=== PATIENT | female | born 1990 | race Hispanic/Latino ===

== ENCOUNTER 2018-06-18 15:28 | Inpatient (IN) | payer OTHER, SELFPAY ==
[~2018-06-18] VITALS: Ht 162.6 cm; Wt 72.8 kg
--- OUTSIDE RECORDS SUMMARY | 2018-06-18 15:30 | XMS REPORT ---
Author Author [facility] Organization [facility] Address Unknown Phone Unavailable Care Team Providers Care Wire Coater Name Role Phone Kalani WEBSTER Unavailable Unavailable Payers Payer Name Policy Type Policy Number Effective Date Expiration Date Problems This patient has no known problems. Allergies, Adverse Reactions, Alerts Allergy Name Allergy Type Status Severity Reaction(s) Onset Date Inactive Date Treating Clinician Comments No Known Allergies DA Active U 2018-03-11 00:00:00 No Known Allergies DA Active U 2017-11-10 00:00:00 Medications This patient has no known medications. Results Test Description Test Time Test Comments Text Results Atomic Results Result Comments US OB TRANSVAG 1ST TRI SINGLE [place] [address] Patient Name: DAYTON PADILLA MR #: [id number] : 1990 Age/Sex: 26/F Req #: [id number] Adm Physician: Ordered by: BETTY WEBSTER MD Report #: [id number] Location: ER Room/Bed: Procedure: [id number] US/US OB TRANSVAG 1ST TRI SINGLE Exam Date: Exam Time: REPORT STATUS: Signed Pelvic ultrasound Transabdominal and Transvaginal History: , bleeding Comparison: None. Technique: Transabdominal ultrasound performed for global evaluation of the uterus. Transvaginal ultrasound performed for detailed evaluation of the endometrium and ovaries. Selected images provided for review. Findings: The uterus is anteverted. It measures 4.4 x 7.0 x 9.6 cm in length. It is normal in size configuration and echogenicity. A round fluid-filled structure in the fundal endometrium with surrounding endometrial thickening measures 7 x 5 x 5 mm. No evidence of yolk sac or embryo. There may be a small subchorionic hemorrhage. Myometrial echo pattern is normal. No evidence of fibroid. The cervix contains a few nabothian cysts. The right ovary measures 2.4 x 2.9 x 3.6 cm. No evidence of mass. The left ovary measures1.0 x 1.7 x 2.3 cm. No evidence of mass. There is no fluid in the cul-de-sac. IMPRESSION: 1. No conclusive evidence of intrauterine or ectopic . Cystic structure in the fundal endometrium could represent a gestational sac. Recommend serial beta hCGs and ultrasounds to confirm developing intrauterine . 2. Normal ovaries. Signed by: Dr. Zenia Gonzalez MD on 04/08/2017 11:34 AM Dictated By: ZENIA GONZALEZ MD [id number] Transcribed By: SANDRA on 04/08/17 1134 COPY TO: BETTY WEBSTER MD
[2018-06-18] MEDS ORDERED: SODIUM CHLORIDE 0.9% 1000ML 1,000 ML IV STA (17:50)
[2018-06-18] MEDS ORDERED: CEFTRIAXONE SOD 1 GM/NS 50 ML 50 ML IV STA (17:50)
[2018-06-18 17:51] LABS: BILIRUBIN,URINE NEGATIVE (NEGATIVE); CLARITY,URINE SL CLOUDY (CLEAR); COLOR,URINE YELLOW (YELLOW); KETONES,URINE NEGATIVE (NEGATIVE); LEUKOCYTE ESTERASE ,URINE TRACE (NEGATIVE); NITRITE,URINE NEGATIVE (NEGATIVE); PREGNANCY TEST, URINE NEGATIVE (NEGATIVE); PROTEIN,URINE DIPSTICK NEGATIVE (NEGATIVE); URINE UROBILINOGEN 0.2 mg/dL (0.2 - 1)
[2018-06-18] MEDS ORDERED: ONDANSETRON HCL INJ 2MG/ML 2ML 2 MG/ML VIAL IV NR (18:00)
[2018-06-18] MEDS ORDERED: MORPHINE SULFATE INJ 4 MG/ML INJ 1ML IV NR (18:00)
[2018-06-18 18:10] LABS: WBC,URINE (MAN) 0-5 /HPF (0-5)
[2018-06-18 18:11] LABS: BACTERIA,URINE MODERATE /HPF; EPITHELIAL CELLS,URINE MANY /LPF
[2018-06-18 18:45] LABS: BASOPHILS % 0.2 % (0.0-1.0); EOSINOPHILS % 0.1 % (0.0-6.0); HEMATOCRIT 41.4 % (34.2-44.1); HEMOGLOBIN 14.1 g/dL (12.0-16.0); LYMPHOCYTES # (AUTO) 1.8 (1.0-3.2); LYMPHOCYTES % 9.8 % (18.0-39.1); MEAN CORPUSCULAR HEMOGLOBIN 30.4 pg (28-32); MEAN CORPUSCULAR HGB CONC 34.1 g/dL (31-35); MEAN CORPUSCULAR VOLUME 89.2 fL (81-99); MONOCYTES # (AUTO) 1.1 (0.2-0.8); NEUTROPHILS # (AUTO) 15.6 (2.1-6.9); NEUTROPHILS % 83.4 % (38.7-80.0); PLATELET COUNT 286 x10e3/uL (140-360); RED BLOOD COUNT 4.64 x10e6/uL (3.6-5.1); RED CELL DISTRIBUTION WIDTH 12.6 % (11.7-14.4)
[2018-06-18 18:59] LABS: ALANINE AMINOTRANSFERASE 12 IU/L (0-55); ALBUMIN/GLOBULIN RATIO 1.3 (0.8-2.0); ALKALINE PHOSPHATASE 71 IU/L (40-150); ANION GAP 14.6 mmol/L (8-16); BLOOD UREA NITROGEN 9 mg/dL (7-26); BUN/CREATININE RATIO 11 (6-25); CALCIUM 9.3 mg/dL (8.4-10.2); CARBON DIOXIDE 24 mmol/L (22-29); CHLORIDE 104 mmol/L (98-107); CREATININE, SERUM 0.81 mg/dL (0.57-1.11); EST GLOMERULAR FILTRATION RATE > 60 ML/MIN (60-); GLUCOSE 86 mg/dL (74-118); POTASSIUM 3.6 mmol/L (3.5-5.1); SODIUM 139 mmol/L (136-145)
--- NOTE | 2018-06-18 19:54 | Diagnostic Imaging Report ---
EXAMINATION: CT of the abdomen and pelvis with contrast. TECHNIQUE: Spiral CT images of the abdomen and pelvis were performed from the lung bases to the lesser trochanters after the intravenous administration of 100 cc of Isovue 370 and the oral administration of water. Coronal and sagittal reformatted images were obtained. COMPARISON: None. CLINICAL HISTORY:Stomach pain, right lower quadrant pain since today DISCUSSION: ABDOMEN/PELVIS: LOWER THORAX:Unremarkable. HEPATOBILIARY: No focal hepatic lesions. No intra or extrahepatic biliary ductal dilation. GALLBLADDER: No radio-opaque stones or sludge. No wall thickening. SPLEEN: No splenomegaly. PANCREAS: No focal masses or ductal dilatation. ADRENALS: 1.1 x 1.2 cm low density well-circumscribed lesion in the right adrenal gland (series 2, image 24 and coronal image 59). Linear calcification in the right adrenal gland. Left adrenal is unremarkable. KIDNEYS/URETERS: No hydronephrosis, stones, or solid mass lesions. PELVIC ORGANS/BLADDER: Bladder and uterus are unremarkable. PERITONEUM/RETROPERITONEUM: Small amount of free fluid in the pelvic cul-de-sac LYMPH NODES: Several mildly prominent, however, subcentimeter lymph nodes along the ileocolic vessel distribution (coronal image 40). No intra-abdominal, retroperitoneal, pelvic or inguinal adenopathy. VESSELS: The celiac trunk,superior and inferior mesenteric and bilateral renal arteries are patent The portal, superior mesenteric and splenic veins are patent. GI TRACT: The appendix is moderately distended measuring 1.2 cm in diameter, with thickened enhancing hardwick and mild to moderate surrounding periappendiceal/pericecal inflammatory changes (series 2, image 62 and coronal images 31-41). No radiopaque appendicolith is identified. No foci of extraluminal air or well-defined enhancing fluid collections. Rest of the bowel shows no dilation or obstruction. No wall thickening. BONES AND SOFT TISSUE: No bony destructive lesions. No soft tissue abnormalities. IMPRESSION: 1. Findings consistent with uncomplicated acute appendicitis. No perforation or adjacent abscess formation. 2. Indeterminate 1.2 cm low-density well-circumscribed lesion in the right adrenal gland, probably representing a small adenoma. Recommend CT abdomen with adrenal mass protocol for further evaluation, on a nonemergent basis. 3. Findings discussed with Jasper Currie NP May 18, 2019 at 1945 hours Signed by: Dr. Reymundo Martinez M.D. on 06/18/2018 7:51 PM
[2018-06-18] MEDS ORDERED: MORPHINE SULFATE 2 MG/ML SYR 1ML IV PRN (20:00)
[2018-06-18] MEDS ORDERED: CEFTRIAXONE SOD 1 GM/NS 50 ML 50 ML IV ONE (20:00)
[2018-06-18] MEDS ORDERED: ONDANSETRON HCL INJ 2MG/ML 2ML 2 MG/ML VIAL IV PRN (20:00)
[2018-06-18] MEDS ORDERED: MORPHINE SULFATE INJ 4 MG/ML INJ 1ML IV PRN (20:30)
[2018-06-18] MEDS ORDERED: IOPAMIDOL 370 MG/ML 200 ML INFUS..BTL INJ ONE (22:39)
[2018-06-18] MEDS ORDERED: SODIUM CHLORIDE 0.9% 50ML 50 ML ONE (22:39)
[2018-06-18] MEDS: SODIUM CHLORIDE 0.9% 1000ML 1,000 ML IV SCH (22:45)
[2018-06-18 23:30] VITALS: BP 128/67
[2018-06-18] MEDS: METRONIDAZOLE 500MG/NS 100ML 100 ML IV SCH (23:48)
[2018-06-19] VITALS: BP 128/67
[2018-06-19 04:00] VITALS: BP 109/60
--- NOTE | 2018-06-19 04:30 | NUR ---
pt states surgical procedure has not been explained by the physician. she states she will sign surgical consent when procedure has been exp;lanescotty to her.
[2018-06-19] MEDS: METRONIDAZOLE 500MG/NS 100ML 100 ML IV SCH ×3 (05:44→18:13)
[2018-06-19] MEDS: SODIUM CHLORIDE 0.9% 1000ML 1,000 ML IV SCH (06:45)
--- NOTE | 2018-06-19 07:30 | NUR ---
Dr. Tyra Albarado at the bedside explained planned procedure to patient and mom. Both verbalized understanding.
--- NOTE | 2018-06-19 08:05 | History and Physical ---
CHIEF COMPLAINT: Right lower quadrant pain. HISTORY OF PRESENT ILLNESS: The patient is a pleasant 27-year-old otherwise healthy female admitted complaining of abdominal pain since Sunday evening. The pain began in the periumbilical area and localized to the right lower quadrant. There was no vomiting. No diarrhea. No fever though she felt chills. No previous similar episodes in the past. The patient came to the emergency room where CT scan revealed changes consistent with acute appendicitis and complicated with perforation. PAST MEDICAL HISTORY: Unremarkable. PAST SURGICAL HISTORY: about a year ago. ALLERGIES: NO KNOWN ALLERGIES. FAMILY HISTORY: Noncontributory. SOCIAL HISTORY: She drinks socially. Does not smoke. REVIEW OF SYSTEMS: Unremarkable except for what has already been stated. PHYSICAL EXAMINATION GENERAL: Reveals a 27-year-old female who is complaining at this point of headache, as well as right lower quadrant pain. VITALS: She is afebrile with stable vital signs. HEENT: Reveals no acute process. LUNGS: Clear. HEART: Reveals regular sinus rhythm. ABDOMEN: Soft with right lower quadrant tenderness and rebound in the right lower quadrant. Bowel sounds are present. PELVIC: Deferred. EXTREMITIES: Reveals no clubbing, cyanosis or edema. NEUROLOGICAL: Nonfocal. ASSESSMENT: Acute appendicitis, both clinically and by radiologic and laboratory data. PLAN: Proceed with laparoscopic appendectomy and possible open appendectomy. The patient agrees with plan. She is aware of potential complications. She is aware of the fact that an open procedure may also be required. Job#: [id number] NADIRA
[2018-06-19 08:43] VITALS: BP 110/64
--- NOTE | 2018-06-19 08:48 | NUR ---
SOCIAL WORK INITIAL ASSESSMENT Transmission System Operator to bedside to discuss plan of care with patient/family. CM/SW role and care transitions discussed. Anticipated discharge plan discussed along with duration of care. CM/SW discussed patients right to make decisions in care. CM/SW work hours given. Patient lives: IN APARTMENT WITH BOYFRIEND AND KIDS Admit/Transfer: VIA ED FROM HOME POA/Emergency contact: MOTHER IS CURT [phone] Current/Previous Home Health: NONE PCP/Follow-up Care: NONE Current/Previous DME: NONE Other Services: NONE Employment Status: HOUSEWIFE Areas of Concerns: NONE Referral Needs: NONE Education Needs: NONE IMM/GUTIERREZ given and signed (if applicable):NA Goal for discharge: RETURN HOME INDEPENDENTLY CM/SW left business card at the bedside with contact information. Name and number was also written on the patients whiteboard. Patient verbalized understanding of discussion. CM will follow-up with ongoing discharge and transition of care needs.
--- NOTE | 2018-06-19 08:49 | NUR ---
Patient off unit to OR via bed.
[2018-06-19] MEDS ORDERED: BUPIVACAINE 0.25%/EPI 30ML SDV INJ ONE (09:12)
--- NOTE | 2018-06-19 12:35 | NUR ---
Patient continues off unit in OR. Family updated
[2018-06-19] MEDS ORDERED: METRONIDAZOLE 500MG/NS 100ML 100 ML IV ONE (12:47)
[2018-06-19] MEDS ORDERED: HYDROMORPHONE 1MG/1ML INJ IV PRN (13:15)
[2018-06-19] MEDS ORDERED: HYDROMORPHONE 2MG/ML 2 MG/ML ML ONE (13:45)
[2018-06-19] MEDS: CEFTRIAXONE SOD 2 GM/NS 100 ML 100 ML IV SCH (14:00)
--- NOTE | 2018-06-19 14:00 | NUR ---
Patient continues off unit and she will be going to med/surg once bed is available. Family updated.
[2018-06-19] MEDS ORDERED: ONDANSETRON HCL INJ 2MG/ML 2ML 2 MG/ML VIAL ONE ×2 (15:28→17:08)
--- NOTE | 2018-06-19 15:45 | NUR ---
PT TO THE FLOOR FROM PACU. VITALS WNL. FAMILY AT BEDSIDE. PT DENIES NEEDS AT THIS TIME.
--- NOTE | 2018-06-19 15:46 | NUR ---
Report given to CATHERINE Arita, family gathered belongings and transferred to room 115.
--- NOTE | 2018-06-19 15:55 | Operative Report ---
DATE OF PROCEDURE: June 18, 2018 PREOPERATIVE DIAGNOSIS: Acute appendicitis. POSTOPERATIVE DIAGNOSIS: Acute appendicitis. PROCEDURE PERFORMED: Attempted laparoscopic appendectomy converted to open appendectomy. ANESTHESIA: General endotracheal. ESTIMATED BLOOD LOSS: 150 mL. DRAINS: 10-mm flat Brown-Javier drain. COMPLICATIONS: None. INDICATIONS AND FINDINGS: The patient is a 27-year-old, healthy female . Workup revealed acute appendicitis. INTRAOPERATIVE FINDINGS: The patient had acute appendicitis with pregangrenous changes in the appendix with severe induration in the area of the appendiceal-cecal junction. There was some purulent fluid in the pelvis. After the appendectomy, was opened, after which I then proceeded to restaple the appendiceal-cecal junction a second time. Then, again, after examining the specimen, I saw that the staple line was not intact. At that point, I decided that it would be better to proceed with an open completion of the appendectomy, This was then performed through a right lower quadrant incision. Then the staple line was reinforced and closed with 3-0 silk and then patched with local fat and an omental pedicle. DESCRIPTION OF PROCEDURE: With the patient lying on the operative table in the supine position after administration of general endotracheal anesthesia, she was prepped and draped for laparoscopic appendectomy. The procedure was begun by establishing a pneumoperitoneum in the umbilical site after a stab wound was made in that location and the saline drop test was performed. A pneumoperitoneum was insufflated to 15 mm of pressure. Then the 11-12 trocar was placed in that location. Then we placed two lateral working ports, 5 mm each, in the right mid-suprapubic region and the right upper quadrant. We then performed the laparoscopy. There was some free purulent fluid in the pelvis that was cultured. After we did that, we went ahead and then found out the appendix was severely inflamed throughout. It was retrocecal. We had to mobilize the cecum after incision of white line of Toldt to find the base of the appendix. The appendix itself was stuck to the distal terminal ileum. After we exposed the operative field, then we mobilized the appendix and transected the blood supply to the appendix with a combination of the Endo AMERICO with a white load and laparoscopic 10-mm davon until we left a point where the appendix and the cecal junction was mobilized. At that point, we transected the appendix with the Endo AMERICO using the blue load, completing... DICTATION STOPPED AT THIS POINT. Job#: [id number]
--- NOTE | 2018-06-19 16:21 | Operative Report ---
DATE OF PROCEDURE: June 19, 2018 PREOPERATIVE DIAGNOSIS: Acute appendicitis with pregangrenous changes and localized peritonitis with inflammatory changes. POSTOPERATIVE DIAGNOSIS: Acute appendicitis with pregangrenous changes and localized peritonitis with inflammatory changes. PROCEDURE PERFORMED: Laparoscopic appendectomy converted to open appendectomy LEGAL PRACTICE MANAGER: None. ESTIMATED BLOOD LOSS: About 100-150 mL. DRAINS: A 10 mm flat Brown-Javier drain to drain the pelvis and right gutter. COMPLICATIONS: None. SPECIMEN REMOVED: Appendix. INDICATIONS AND FINDINGS: The patient is a 27-year-old otherwise healthy female admitted to the hospital through the emergency room complaining of abdominal pain since Sunday evening. The pain started in the periumbilical region and then localized to the right lower quadrant. She had a white count of 18,[address] scan that revealed inflammatory changes in the area of the appendix, as well as around the appendix without any rupture or abscess formation. INTRAOPERATIVE FINDINGS: The patient had acute appendicitis with gangrenous changes and inflammatory changes throughout the entire length of the appendix with free fluid and purulent fluid in the pelvis. The appendix that retrocecal. In order to get to it, we had to mobilize the ascending colon through the white line of Toldt. After we completed the appendectomy laparoscopically, we noticed that the staple line was not intact. Then we re-stapled the staple line in the area the cecum. Then again we found out that this staple line was not intact. Then we converted it to an open appendectomy and then closed the staple line with a series of interrupted 3-0 silk sutures, which was reinforced and buttressed with local fat and an omental pedicle. DESCRIPTION OF PROCEDURE: With the patient lying on the table in the supine position and after administration of general endotracheal anesthesia, she was prepped and draped for laparoscopic appendectomy. The procedure was begun by establishing a pneumoperitoneum in the umbilical site, and then placed a 10/11 trocar in that location after the saline drop test was performed. A pneumoperitoneum was insufflated to 15 mm of pressure. Then we placed an11/12 trocar there. The camera was introduced. We placed a 5 mm suprapubic midline port and then a right midline midclavicular subxiphoid port, which was eventually converted to an 11/12 trocar also in order to staple the appendix through that location to get a better angle. We then went ahead and identified the fluid in the pelvis. It was cultured and suctioned out. The small bowel and the terminal ileum was stuck to the appendix and into the cecum, as well as part of the omentum. We could see the appendix easily, but we were not able to see the base as this was retroperitoneal. We then mobilized the ascending colon and cecum after incision of the white line of Toldt. Then we continued the mobilization of the appendix. We transected the mesoappendix with a combination of the Endo-AMERICO using the white long and 10 mm endo-clips until the only remaining structure was the appendix in the area of the cecum. We then transected the appendix with the Endo-AMERICO blue load. Placed the appendix in an Endobag and removed it. After we did that, because of the difficulty of the dissection, inspected the appendix at the staple line and saw that it was not intact. At this point, then we reinstituted the pneumoperitoneum. Identified the area of the base of the appendix to the cecum and then re-stapled that using the Endo-AMERICO blue load. We then reinspected the 2nd staple line, and we saw that there was also a defect there. At that point, I decided to go ahead and open the appendix would be in the best interest. I decided that I would convert the case to an open one, and it would be in the best interest of the patient. I did that through a tail of the incision to where the cecum was in the right lower quadrant slightly higher than the McBurney point. Through a muscle-splitting incision, we entered the abdomen. The cecum was easily delivered into the wound because it had already been mobilized. It was easily exteriorized. We inspected the cecum. The area where the appendix was. Initially, we could not see any defect in the staple line, but after we inspected the cecal region, we saw that there was a small area where the appendiceal stump was that the staple line had not closed the bowel. Then we decided to rather than re-stapling to close it by hand as it was getting close to the ileocecal valve in order not to stricture down the ileocecal valve. We placed a series of interrupted 3-0 silk sutures obliterating the defect and reinforced the staple line. Then we covered the repair or closure with local fat and an omental pedicle with 3-0 silk. We were satisfied with the results. Irrigated the pelvis and the right lower quadrant. We ascertained there was no bleeding. No bowel leak. No apparent bowel injury. After verification that the sponge and instrument count was correct, we closed the right lower quadrant incision in a 3-layer fashion using 0 Vicryl for the peritoneum, the internal oblique, as well as the external oblique fascia and part of the rectus sheath. The subcutaneous tissues were copiously irrigated and then closed in 2 layers using 2-0 plain catgut twice. The skin was closed using davon. The right upper quadrant 11/12 trocar site, as well as the umbilical trocar site were closed using 0 Vicryl. The subcutaneous tissue in that location were closed using 3-0 Vicryl. The skin was closed using davon. Sterile dressing was applied. The patient tolerated the procedure well, and taken to the recovery room in stable condition. I informed the patient's relatives throughout the procedure about the reason why the case was taking longer than usual. At the end of the procedure, I did not find anyone waiting for the patient in the waiting room area. The patient tolerated the procedure well, and taken to the recovery room in stable condition. Job#: [id number] ID
[2018-06-19] MEDS: PANTOPRAZOLE 40 MG 10ML VIAL IV SCH (17:05)
[2018-06-19] MEDS: D5.45%NS/KCL 20MEQ 1,000 ML IV SCH ×2 (17:05→23:04)
[2018-06-19] MEDS ORDERED: SEVOFLURANE INHAL SOLN 250 ML PEN BTL ONE (17:08)
[2018-06-19] MEDS ORDERED: PROPOFOL IV EMULSION 10 MG/ML 20 ML VIAL ONE (17:08)
[2018-06-19] MEDS ORDERED: DEXAMETHASONE SOD PHOS INJ 4 MG/ML VIAL ONE (17:08)
[2018-06-19] MEDS ORDERED: ACETAMINOPHEN 1000 MG/100 ML IV ONE (17:08)
[2018-06-19] MEDS ORDERED: LIDOCAINE HCL 2% LOCAL INJ 5 ML SDV VIAL INJ ONE (17:08)
[2018-06-19] MEDS ORDERED: ROCURONIUM BROMIDE 10 MG/ML 5ML VIAL ONE (17:08)
[2018-06-19] MEDS ORDERED: GLYCOPYRROLATE INJ 1MG/ 5 ML SYR ONE (17:08)
[2018-06-19] MEDS ORDERED: NEOSTIGMINE 5 MG/5ML SYR ONE (17:08)
[2018-06-19] MEDS ORDERED: KETOROLAC TROMETHAMINE 30 MG/ML VIAL ONE (17:08)
[2018-06-19] MEDS ORDERED: FENTANYL CITRATE/PF 100MCG/2 ML INJ ONE (17:17)
[2018-06-19] MEDS ORDERED: MORPHINE SULFATE INJ 10 MG/ML ONE (17:17)
[2018-06-19] MEDS ORDERED: MIDAZOLAM HCL 2 MG/2 ML VIAL ONE (17:17)
[2018-06-19 17:19] VITALS: BP 103/56
[2018-06-19] MEDS: HYDROMORPHONE 2MG/ML 2 MG/ML ML IV PRN (19:52)
[2018-06-19 20:00] VITALS: BP 108/63
--- NOTE | 2018-06-19 22:28 | NUR ---
patient ambulated to the door and back, was unable to continue had too much discomfort, positioned back in bed, will continue to monitor.
[2018-06-20] VITALS (8 sets, daily range): BP systolic 103–117; BP diastolic 55–67
[2018-06-20] MEDS: METRONIDAZOLE 500MG/NS 100ML 100 ML IV SCH ×5 (01:29→23:54)
[2018-06-20] MEDS: HYDROMORPHONE 2MG/ML 2 MG/ML ML IV PRN ×3 (04:13→11:51)
[2018-06-20 05:33] LABS: BASOPHILS % 0.1 % (0.0-1.0); HEMATOCRIT 32.4 % (34.2-44.1); HEMOGLOBIN 10.9 g/dL (12.0-16.0); LYMPHOCYTES # (AUTO) 1.3 (1.0-3.2); MEAN CORPUSCULAR HEMOGLOBIN 30.2 pg (28-32); MEAN CORPUSCULAR HGB CONC 33.6 g/dL (31-35); MEAN CORPUSCULAR VOLUME 89.8 fL (81-99); MONOCYTES % 7.2 % (4.4-11.3); NEUTROPHILS # (AUTO) 12.1 (2.1-6.9); NEUTROPHILS % 83.2 % (38.7-80.0); PLATELET COUNT 228 x10e3/uL (140-360); RED BLOOD COUNT 3.61 x10e6/uL (3.6-5.1); RED CELL DISTRIBUTION WIDTH 12.4 % (11.7-14.4)
[2018-06-20 06:00] LABS: ANION GAP 11.1 mmol/L (8-16); BLOOD UREA NITROGEN 6 mg/dL (7-26); BUN/CREATININE RATIO 9 (6-25); CALCIUM 8.3 mg/dL (8.4-10.2); CARBON DIOXIDE 25 mmol/L (22-29); CHLORIDE 103 mmol/L (98-107); EST GLOMERULAR FILTRATION RATE > 60 ML/MIN (60-); GLUCOSE 113 mg/dL (74-118); POTASSIUM 4.1 mmol/L (3.5-5.1); SODIUM 135 mmol/L (136-145)
--- NOTE | 2018-06-20 06:56 | NUR ---
PATIENT RESTING IN BED WITH HOB ELEVATED, DRESSING TO ABDOMEN REMAIN INTACT WITH ABDOMINAL BINDER. DICKSON CATHETER REMAIN INTACT, DICKSON CARE GIVEN. COMPLAIN OF PAIN AND MEDICATED ORDERED. THANH DRAIN REMAIN INTACT. PATIENT HAS HAD SEVERAL ROUNDS OF TEACHING CONCERNING THE INCENTIVE SPIROMETRY AND PREVENTING PNEUMONIA AND FEVER, PATIENT CONTINUES TO NEED ENCOURAGEMENT TO MOVE MORE, PATIENT IS VERY AWARE AND UNDERSTAND THE TEACHING THAT SHE'S RECEIVED. REPORT GIVEN TO AM NURSE. ROUNDS DONE. WILL CONTINUE TO MONITOR.
--- NOTE | 2018-06-20 07:00 | NUR ---
RECEIVED SHIFT CHANGE ROUNDING REPORT FROM NIGHT RN. PT DENIES NEEDS AT THIS TIME.
[2018-06-20] MEDS: PANTOPRAZOLE 40 MG 10ML VIAL IV SCH (09:08)
[2018-06-20] MEDS: D5.45%NS/KCL 20MEQ 1,000 ML IV SCH ×2 (09:09→12:25)
[2018-06-20] MEDS: CEFTRIAXONE SOD 2 GM/NS 100 ML 100 ML IV SCH (13:19)
[2018-06-20] MEDS: ONDANSETRON HCL INJ 2MG/ML 2ML 2 MG/ML VIAL IV PRN (13:19)
[2018-06-20] MEDS: HYDROCODONE/APAP 5MG-325MG TAB PO PRN ×2 (15:27→20:19)
--- NOTE | 2018-06-20 15:27 | NUR ---
Patient voided at this time.
--- NOTE | 2018-06-20 18:04 | NUR ---
PT HAS VOIDED FOR SECOND TIME NOW. PT DENIES FURTHER NEEDS.
--- NOTE | 2018-06-20 18:18 | NUR ---
PT HAS AMBULATED 3 TIMES TODAY, EACH TIME 30 MINUTES OR MORE AND HAS BEEN SITTING IN CHAIR AT BEDSIDE. PT TOLERATED. [id number] FURTHER NEEDS.
--- NOTE | 2018-06-20 20:19 | NUR ---
PT AMBULATED TO BATHROOM AND BACK TO BED,NO S/S OF DISTRESS NOTED.RESPIRATIONS EVEN/NON LABORED.PT C/O PAIN TO ABDOMEN,PAIN MEDICATION GIVEN PER AUG.SCD'S APPLIED BACK ON.BED IN LOWEST/LOCKED POSITION.FAMILY MEMBER AT BEDSIDE.INSTRUCTED PT TO CALL FOR ASSISTANCE NEEDED BY USING CALL LIGHT.PT VERBALIZED UNDERSTANDING.CALL LIGHT WITHIN EASY REACH.
[2018-06-21] VITALS (7 sets, daily range): BP systolic 110–137; BP diastolic 55–69
[2018-06-21] MEDS: D5.45%NS/KCL 20MEQ 1,000 ML IV SCH ×2 (01:32→14:49)
[2018-06-21] MEDS: HYDROCODONE/APAP 5MG-325MG TAB PO PRN ×5 (03:32→23:20)
[2018-06-21 05:29] LABS: BASOPHILS % 0.3 % (0.0-1.0); EOSINOPHILS % 0.3 % (0.0-6.0); HEMATOCRIT 32.5 % (34.2-44.1); HEMOGLOBIN 10.7 g/dL (12.0-16.0); MEAN CORPUSCULAR HEMOGLOBIN 29.6 pg (28-32); MEAN CORPUSCULAR HGB CONC 32.9 g/dL (31-35); MONOCYTES # (AUTO) 0.7 (0.2-0.8); MONOCYTES % 9.1 % (4.4-11.3); NEUTROPHILS # (AUTO) 5.6 (2.1-6.9); NEUTROPHILS % 75.6 % (38.7-80.0); PLATELET COUNT 228 x10e3/uL (140-360); RED BLOOD COUNT 3.61 x10e6/uL (3.6-5.1); RED CELL DISTRIBUTION WIDTH 12.4 % (11.7-14.4)
[2018-06-21 05:49] LABS: ANION GAP 10.5 mmol/L (8-16); BLOOD UREA NITROGEN 6 mg/dL (7-26); BUN/CREATININE RATIO 9 (6-25); CALCIUM 8.2 mg/dL (8.4-10.2); CARBON DIOXIDE 25 mmol/L (22-29); CHLORIDE 104 mmol/L (98-107); CREATININE, SERUM 0.69 mg/dL (0.57-1.11); EST GLOMERULAR FILTRATION RATE > 60 ML/MIN (60-); GLUCOSE 99 mg/dL (74-118); POTASSIUM 3.5 mmol/L (3.5-5.1); SODIUM 136 mmol/L (136-145)
[2018-06-21] MEDS: METRONIDAZOLE 500MG/NS 100ML 100 ML IV SCH ×3 (06:18→17:27)
--- NOTE | 2018-06-21 07:11 | NUR ---
REPORT GIVEN TO ONCOMING NURSE,WALKING ROUNDS DONE.PT RESTING IN BED WITH NO S/S OF DISTRESS.
--- NOTE | 2018-06-21 07:57 | NUR ---
Received patient this morning, a/ox3, in bed and on liquid diet, c/o abdominal pains and medicated with Archbold as ordered, encouraged to get up and ambulate and observed ambulating hallways with mother by her side, safety maintained, will monitor.
[2018-06-21] MEDS: PANTOPRAZOLE 40 MG 10ML VIAL IV SCH (08:08)
[2018-06-21] MEDS: ONDANSETRON HCL INJ 2MG/ML 2ML 2 MG/ML VIAL IV PRN (11:34)
--- NOTE | 2018-06-21 14:38 | NUR ---
Rounds by surgeon and orders for suppository x1 now and once in the morning on 06/22. KCL 30meq replacement also ordered, will monitor as patient still OOB and ambulating often.
[2018-06-21] MEDS ORDERED: BISACODYL 10 MG SUPP PR ONE (14:45)
[2018-06-21] MEDS ORDERED: POTASSIUM CHLORIDE 20 MEQ TAB CR PO ONE (14:45)
[2018-06-21] MEDS: CEFTRIAXONE SOD 2 GM/NS 100 ML 100 ML IV SCH (14:49)
--- NOTE | 2018-06-21 15:46 | NUR ---
Patient was administered suppository at this time and tolerated well
--- NOTE | 2018-06-21 20:15 | NUR ---
DRESSING DRY AND INTACT TO THE ABDOMEN WITHOUT BLEEDING, PATIENT DENIES PASSING FLATUS. BOWEL SOUNDS HYPOACTIVE, ABDOMINAL BINDER ON AND THE PATIENT DENIES PAIN. CALL LIGHT WITHIN EASY REACH, FAMILY MEMBERS WITH THE PATIENT.
--- NOTE | 2018-06-21 20:43 | NUR ---
PATIENT AMBULATING IN THE [place], NO DISTRESS OBSERVED, HER FAMILY MEMBERS ARE WITH HER.
--- NOTE | 2018-06-21 23:20 | NUR ---
PATIENT C/O PAIN TO THE ABDOMEN WITH PAIN SCORE #9, MEDICATED WITH NORCO 1TAB ORDERED. CALL LIGHT WITHIN EASY REACH, FAMILY MEMBER WITH THE PATIENT.
[2018-06-22] VITALS (7 sets, daily range): BP systolic 111–123; BP diastolic 57–75
[2018-06-22] MEDS: METRONIDAZOLE 500MG/NS 100ML 100 ML IV SCH ×3 (00:06→11:53)
--- NOTE | 2018-06-22 03:04 | NUR ---
PATIENT IS SOUNDLY ASLEEP, NO RESPIRATORY DISTRESS OBSERVED. CALL LIGHT WITHIN EASY REACH, FAMILY MEMBER WITH THE PATIENT.
[2018-06-22] MEDS: D5.45%NS/KCL 20MEQ 1,000 ML IV SCH (04:40)
--- NOTE | 2018-06-22 05:15 | NUR ---
PATIENT AMBULATED IN THE [place] WITH HER AUNT AT HER SIDE, SHE'S NOW BACK IN BED. SHE C/O ABDOMINAL PAIN, MEDICATED WITH NORCO 1TAB ORDERED. CALL LIGHT WITHIN EASY REACH, INSTRUCTED TO CALL FOR ASSISTANCE NEEDED DUE TO SIDE EFFECT FROM THE MEDICATION.
[2018-06-22] MEDS: HYDROCODONE/APAP 5MG-325MG TAB PO PRN ×3 (05:21→19:37)
[2018-06-22] MEDS ORDERED: BISACODYL 10 MG SUPP PR ONE (06:00)
[2018-06-22 06:05] LABS: BASOPHILS % 0.4 % (0.0-1.0); EOSINOPHILS % 0.7 % (0.0-6.0); HEMATOCRIT 33.1 % (34.2-44.1); LYMPHOCYTES # (AUTO) 1.2 (1.0-3.2); LYMPHOCYTES % 22.5 % (18.0-39.1); MEAN CORPUSCULAR HEMOGLOBIN 29.8 pg (28-32); MEAN CORPUSCULAR HGB CONC 33.2 g/dL (31-35); MEAN CORPUSCULAR VOLUME 89.7 fL (81-99); MONOCYTES # (AUTO) 0.5 (0.2-0.8); MONOCYTES % 9.4 % (4.4-11.3); NEUTROPHILS # (AUTO) 3.6 (2.1-6.9); NEUTROPHILS % 66.3 % (38.7-80.0); PLATELET COUNT 242 x10e3/uL (140-360); RED BLOOD COUNT 3.69 x10e6/uL (3.6-5.1); RED CELL DISTRIBUTION WIDTH 12.1 % (11.7-14.4)
[2018-06-22 06:31] LABS: ANION GAP 11.1 mmol/L (8-16); BLOOD UREA NITROGEN 6 mg/dL (7-26); BUN/CREATININE RATIO 8 (6-25); CALCIUM 8.8 mg/dL (8.4-10.2); CARBON DIOXIDE 26 mmol/L (22-29); CHLORIDE 106 mmol/L (98-107); CREATININE, SERUM 0.72 mg/dL (0.57-1.11); EST GLOMERULAR FILTRATION RATE > 60 ML/MIN (60-); GLUCOSE 95 mg/dL (74-118); POTASSIUM 4.1 mmol/L (3.5-5.1); SODIUM 139 mmol/L (136-145)
--- NOTE | 2018-06-22 08:21 | NUR ---
Patient alert and responsive, no resp distress and OOB and ambulating, had 3 small BMs loose, will monitor.
[2018-06-22] MEDS: PANTOPRAZOLE 40 MG 10ML VIAL IV SCH (09:00)
[2018-06-22] MEDS: CEFTRIAXONE SOD 2 GM/NS 100 ML 100 ML IV SCH (14:10)
--- NOTE | 2018-06-22 18:14 | NUR ---
Patient alert and responsive, OOB and ambulating several time and tolerated Full liquid diet, some nausea but medicated as ordered. will monitor.
--- NOTE | 2018-06-22 19:38 | NUR ---
PATIENT C/O PAIN TO THE ABDOMEN WITH PAIN SCORE #7, MEDICATED WITH NORCO 1TAB ORDERED. DRESSING DRY AND INTACT TO THE ABDOMEN WITHOUT BLEEDING, THANH DRAIN INTACT. ABDOMEN SOFT WITH BOWEL SOUNDS HYPOACTIVE. CALL LIGHT WITHIN EASY REACH, PATIENT'S AUNT AT THE BEDSIDE.
--- NOTE | 2018-06-22 20:17 | NUR ---
PATIENT AMBULATING IN THE [place], NO DISTRESS OBSERVED, SHE VOICED RELIEF OF PAIN TO THE ABDOMEN. HER AUNT IS AT HER SIDE.
[2018-06-23] VITALS (7 sets, daily range): BP systolic 107–129; BP diastolic 56–78
[2018-06-23] MEDS: METRONIDAZOLE 500MG/NS 100ML 100 ML IV SCH ×5 (00:10→23:55)
--- NOTE | 2018-06-23 03:19 | NUR ---
PATIENT IS SOUNDLY ASLEEP, SHE'S EASY TO AROUSE. SHE DENIES PAIN TO THE ABDOMEN, INSTRUCTED TO CALL FOR ASSISTANCE NEEDED.
[2018-06-23] MEDS: HYDROCODONE/APAP 5MG-325MG TAB PO PRN ×3 (06:13→23:55)
--- NOTE | 2018-06-23 07:21 | NUR ---
Received patient and alert, responsive, family member in room with patient during rounds, no distress at this time, call light within reach, will monitor
[2018-06-23] MEDS: PANTOPRAZOLE 40 MG 10ML VIAL IV SCH (09:00)
--- NOTE | 2018-06-23 11:07 | NUR ---
Rounds by Dr. Null and orders to advance diet to GI soft, pains well managed, no resp distress, incision to abd intact and THANH drain draining, will monitor as OOB ambulating
[2018-06-23] MEDS: CEFTRIAXONE SOD 2 GM/NS 100 ML 100 ML IV SCH (14:00)
--- NOTE | 2018-06-23 21:26 | NUR ---
PATIENT IS AMBULATING IN THE [place], NO ACUTE DISTRESS OBSERVED, HER AUNT IS AT HER SIDE.
[2018-06-24] VITALS: BP 115/56
--- NOTE | 2018-06-24 03:39 | NUR ---
PATIENT IS ASLEEP, SHE'S EASY TO AROUSE. NO RESPIRATORY DISTRESS OBSERVED, SHE DENIES ABDOMINAL PAIN. CALL LIGHT WITHIN EASY REACH, HER AUNT IS PRESENT IN THE ROOM.
[2018-06-24 04:00] VITALS: BP 106/66
[2018-06-24] MEDS: METRONIDAZOLE 500MG/NS 100ML 100 ML IV SCH (06:30)
--- NOTE | 2018-06-24 07:00 | NUR ---
SHIFT REPORT RECEIVED FROM MECHANICAL DESIGN TECHNICIAN RN WHILE ROUNDING. PT DENIES NEEDS AT THIS TIME.
[2018-06-24 08:00] VITALS: BP 105/69
[2018-06-24] MEDS: HYDROCODONE/APAP 5MG-325MG TAB PO PRN (08:43)
--- NOTE | 2018-06-24 08:45 | NUR ---
ROUNDING WITH DR. ANGLIN ON PT. REMOVED THANH AND NEW DRESSING AT BEDSIDE. PT TOLERATED. DENIES FURTHER NEEDS.
[2018-06-24] MEDS: PANTOPRAZOLE 40 MG 10ML VIAL IV SCH (08:58)
--- NOTE | 2018-06-24 10:34 | Discharge Summary ---
DISCHARGE DIAGNOSIS: Acute gangrenous appendicitis. PROCEDURE PERFORMED THIS HOSPITALIZATION: Attempted laparoscopic appendectomy converted to open appendectomy. CONSULTATION: None. HOSPITAL COURSE: The patient is an otherwise healthy, 27-year-old female who was admitted to the hospital with acute appendicitis clinically as well as by CT. Past medical history was unremarkable. The patient had severe inflammatory changes in the area of the right lower quadrant and the appendix, and the base of the appendix was indurated. We could not successfully staple. She was then converted to open cholecystectomy. Postoperative course: The patient was given intravenous antibiotics for treatment of gangrenous acute appendicitis. She did well with the treatment. She had a Brown-Javier drain that was removed the day of discharge. She was discharged in stable condition, and the patient was discharged tolerating a regular diet well on 06/24/2018. She was discharged home with no work tolerance. Instructions were no lifting more than 10 pounds. Follow up in my office this to remove davon. Discharge medicines were Levaquin 500 one p.o. daily for 5 days and Tylenol No. 3 one p.o. q. 4-6 h. p.r.n. for pain, number 40, no refills. The patient was given instructions. CRISTO ANGLIN MD Job#: [id number]
== END 2018-06-24 10:28 | disposition home or self-care (01) | DRG 343 ==
LOC: ER 15:28 → ERHOLD 20:44 → IMCU 23:00 → OBSVTOIN 06-19 13:04 → MED/SURG 06-19 15:48
PROVIDERS: ADMIT Surgery; ATTEND Surgery
PROC: 0DTJ0ZZ Resection of Appendix, Open Approach (ICD-10-PCS; principal; 2018-06-18)
PROC: 0DJD4ZZ Inspection of Lower Intestinal Tract, Percutaneous Endoscopic Approach (ICD-10-PCS; 2018-06-18)
DX: K35.31 Acute appendicitis with localized peritonitis and gangrene, without perforation (principal)
CPT/HCPCS: 36415; 74177; 80048; 80053; 81001; 81025; 85025; 87071; 87075; 87086; 87205; 88304; 96367; 96374; 96375; 99284; C1766; G0378; J0696; J1100; J1885; J2001; J2250; J2270; J2405; J7030; Q9967

== ENCOUNTER 2019-04-18 02:50 | Emergency (ER) | payer SELFPAY ==
[~2019-04-18] VITALS: Ht 165.1 cm; Wt 63.5 kg
[2019-04-18] MEDS ORDERED: PANTOPRAZOLE 40 MG 10ML VIAL IV STA (03:11)
[2019-04-18] MEDS ORDERED: ONDANSETRON HCL INJ 2MG/ML 2ML 2 MG/ML VIAL IV STA (03:11)
[2019-04-18] MEDS ORDERED: DICYCLOMINE HCL 20 MG/2 ML VIAL IM ONE (03:15)
[2019-04-18 03:33] LABS: BASOPHILS % 0.3 % (0.0-1.0); EOSINOPHILS % 0.5 % (0.0-6.0); HEMATOCRIT 40.8 % (34.2-44.1); HEMOGLOBIN 13.8 g/dL (12.0-16.0); LYMPHOCYTES # (AUTO) 2.1 (1.0-3.2); LYMPHOCYTES % 34.3 % (18.0-39.1); MEAN CORPUSCULAR HEMOGLOBIN 29.4 pg (28-32); MEAN CORPUSCULAR HGB CONC 33.8 g/dL (31-35); MEAN CORPUSCULAR VOLUME 86.8 fL (81-99); MONOCYTES # (AUTO) 0.4 (0.2-0.8); MONOCYTES % 5.6 % (4.4-11.3); NEUTROPHILS # (AUTO) 3.7 (2.1-6.9); PLATELET COUNT 264 x10e3/uL (140-360); RED CELL DISTRIBUTION WIDTH 12.3 % (11.7-14.4)
[2019-04-18 03:34] LABS: PREGNANCY TEST, URINE NEGATIVE (NEGATIVE)
[2019-04-18 03:38] LABS: BILIRUBIN,URINE NEGATIVE (NEGATIVE); CLARITY,URINE SL CLOUDY (CLEAR); COLOR,URINE YELLOW (YELLOW); KETONES,URINE NEGATIVE (NEGATIVE); LEUKOCYTE ESTERASE ,URINE NEGATIVE (NEGATIVE); NITRITE,URINE NEGATIVE (NEGATIVE); PROTEIN,URINE DIPSTICK NEGATIVE (NEGATIVE); URINE UROBILINOGEN 0.2 mg/dL (0.2 - 1)
[2019-04-18 03:52] LABS: ALANINE AMINOTRANSFERASE 18 IU/L (0-55); ALBUMIN 4.4 g/dL (3.5-5.0); ALBUMIN/GLOBULIN RATIO 1.5 (0.8-2.0); ALKALINE PHOSPHATASE 66 IU/L (40-150); ANION GAP 14.8 mmol/L (8-16); BLOOD UREA NITROGEN 9 mg/dL (7-26); BUN/CREATININE RATIO 11 (6-25); CALCIUM 9.3 mg/dL (8.4-10.2); CARBON DIOXIDE 23 mmol/L (22-29); CHLORIDE 102 mmol/L (98-107); CREATININE, SERUM 0.84 mg/dL (0.57-1.11); EST GLOMERULAR FILTRATION RATE > 60 ML/MIN (60-); GLUCOSE 86 mg/dL (74-118); POTASSIUM 3.8 mmol/L (3.5-5.1); SODIUM 136 mmol/L (136-145)
[2019-04-18 03:53] LABS: AMYLASE 81 U/L (25-125); LIPASE 8 U/L (8-78)
[2019-04-18 04:02] LABS: BACTERIA,URINE MANY /HPF; EPITHELIAL CELLS,URINE FEW /LPF; WBC,URINE (MAN) 0-5 /HPF (0-5)
[2019-04-18 04:03] LABS: MUCUS,URINE FEW (RARE)
[2019-04-18] MEDS ORDERED: KETOROLAC TROMETHAMINE 30 MG/ML VIAL IV STA (04:30)
--- NOTE | 2019-04-18 05:00 | Diagnostic Imaging Report ---
HISTORY: ^RUQ PAIN ^Y TECHNIQUE: Selected images from limited abdominal ultrasound provided for INTERPRETATION: COMPARISON: CT abdomen/pelvis 06/18/2018. FINDINGS: Pancreas: Visualized portions are normal. No ductal dilatation. Liver: Measures 14.1 cm in sagittal plane. The echotexture is normal. No mass in the visualized portions. Portal Vein: Measures 0.7 cm. Proper directional flow on spectral Doppler interrogation. Intrahepatic bile ducts: Normal Gallbladder: Present. There are 2 gallstones in the fundus, with the larger gallstone measuring 15 mm. These are not mobile. No gallbladder wall thickening or pericholecystic fluid. Sonographic Jay sign is negative. CBD: 0.3 cm. Right Kidney: 9.7 cm in greatest length. The echotexture is normal. There is no evidence for mass. There is no collecting system dilatation or evidence of obstruction. No renal calculi evident. No adjacent free fluid or fluid collections. Visualized IVC and aorta are normal. There is no free fluid. IMPRESSION: Nonmobile gallstones in the gallbladder fundus. No sonographic evidence of acute cholecystitis. The remainder of the visualized right upper quadrant is normal. Signed by: Dr. Matthew Gonzalez MD on 04/18/2019 4:57 AM
[2019-04-18 05:19] VITALS: BP 118/82
== END 2019-04-18 05:47 | disposition home or self-care (01) ==
LOC: ER 02:50
DX: R10.11 Right upper quadrant pain (principal); R11.0 Nausea; K80.20 Calculus of gallbladder without cholecystitis without obstruction
CPT/HCPCS: 36415; 76705; 80053; 81001; 81025; 82150; 83690; 85025; 96374; 96375; 99284; C9113; J0500; J1885; J2405